=== PATIENT | female | born 1965 | race Caucasian/White ===

== ENCOUNTER 2021-09-16 09:44 | Emergency (ER) | payer BC, SELFPAY ==
[2021-09-16] VITALS (51 sets, daily range): BP systolic 130–162; BP diastolic 81–94; PULSE 93–128; RESP 11–29; TEMP 36.6; O2SAT 95–100
--- NOTE | ~2021-09-16 | CT_ITS ---
EXAMINATION: CTA chest PE protocol DATE: 09/16/2021 12:21 INDICATION: Cough. 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 TECHNIQUE: Computed tomography (CT) pulmonary angiogram of the chest was performed with 100 mL Omnipa que-350 intravenous contrast. Additional 3D reconstructions utilizing coronal maximum intensity proje ction (MIP) were performed. Automated exposure control and iterative reconstruction technique were em ployed. The dose-length product was 411.79 mGy-cm. COMPARISON: None FINDINGS: Good contrast opacification of the pulmonary arteries. There is mild streak artifact from dense contr ast in the superior vena cava and right atrium. Mild scattered respiratory motion artifact. Overall t his only mildly limits evaluation in the smaller more peripheral subsegmental pulmonary arteries. No pulmonary embolism. No pneumonia, pulmonary edema, pleural effusion or pneumothorax. Heart size is no rmal. Thoracic aorta is normal in caliber with no dissection. 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 No pathologically enlarged thoracic lymphadenopathy. Small sliding-type hia viktoria hernia. Visualized upper abdomen is unremarkable. Chronic anterior wedging with 20% anterior vert ebral body height loss at T11 and T12. Mild upper and moderate lower thoracic spondylosis. IMPRESSION: 1. No pulmonary embolism or other acute cardiopulmonary disease. 2. Small sliding-type hiatal hernia. Reviewed, dictated and finalized at location A. [employer] WORK[employer]
--- NOTE | ~2021-09-16 | US_ITS ---
EXAMINATION: US venous doppler LE RT DATE: 09/16/2021 11:10 INDICATION: Right lower limb pain TECHNIQUE: Grayscale ultrasound images without and with compression and Doppler ultrasound images of the right lower extremity veins were obtained. COMPARISON: None. FINDINGS: There is occlusive appearing noncompressible hypoechoic thrombus throughout the veins of the right lo wer limb including the visualized portions of right common femoral vein, profunda (deep) femoral vein , femoral vein, popliteal vein, peroneal trunk, posterior tibial veins, peroneal veins, gastrocnemius vein, soleus vein and greater saphenous vein outflow. The occlusive thrombus extends proximally into the visualized portion of the right external iliac vein. The contralateral left common femoral vein and greater saphenous vein are patent and compressible. IMPRESSION: 1. Extensive deep venous thrombosis throughout all of the visualized vessels in the right lower limb beginning distally in the calf and extending proximally into the left external iliac vein in the pel vis. Dr. Baker discussed these findings with Dr. Falk at 11:17 AM. Reviewed, dictated and finalized at location A. FLOOR ATTENDANT IMPRESSION: 1. Extensive deep venous thrombosis throughout all of the visualized vessels i n the right lower limb beginning distally in the calf and extending proximally into the left external iliac vein in the pelvis. Dr. Baker discussed these f indings with Dr. Falk at 11:17 AM.
--- NOTE | 2021-09-16 10:19 | ED.GENADULT ---
HPI - General Adult General Chief complaint: Extremity Problem,Nontraumatic <Marvin Valera ABDULLAHI CONKLIN - Last Filed: 09/16/21 19:06> Stated complaint: hip and leg pain <Marvin ValeraKATERIN BC - Last Filed: 09/16/21 19:06> Time Seen by Provider: 09/16/21 10:05 <Marvin Love KATERIN Valera BC - Last Filed: 09/16/21 19:06> Source: patient <HIRA NogueiraABDULLAHI Hemphill - Last Filed: 09/16/21 19:06> Mode of arrival: ambulatory <Marvin Love Moraima ABDULLAHI CONKLIN - Last Filed: 09/16/21 19:06> Limitations: no limitations <Marvin Valera ABDULLAHI CONKLIN - Last Filed: 09/16/21 19:06> History of Present Illness HPI narrative: Patient presents for evaluation of right lower quadrant pain with radiation into the right lower extremity. Symptom onset yesterday morning upon waking from sleep. She cannot identify any precipitating cause or injury. No history of similar symptoms. Pain is constant, throbbing, worse with movement. She has experienced nausea, an episode of vomiting, and constipation. She also has some decreased urinary output without other urinary symptoms. Denies vaginal bleeding and discharge. No recent surgeries. No personal history of VTE. Twin sister does have a history of VTE. Pt is on oral estrogen based contraceptive. <Marvin Love KATERIN Valera BC - Last Filed: 09/16/21 19:06> Related Data Home medications: Home Medications Medication Instructions Recorded Confirmed diphenhydramine HCl [Benadryl 25 mg PO DAILY 09/16/21 Allergy] <Marvin BarryKATERIN Vallejo BC - Last Filed: 09/16/21 19:06> Allergies/adverse reactions: Allergies Allergy/AdvReac Type Severity Reaction Status Date / Time poison mazin extract Allergy Intermediate Rash Verified 03/07/19 09:10 Penicillins Allergy Rash Verified 09/16/21 15:29 <Marvin LKATERIN Lee BC - Last Filed: 09/16/21 19:06> Review of Systems Review of Systems: CONSTITUTIONAL: Denies fever, chills, or sweats. EYES: Denies visual changes, redness, or discharge. ENT: Denies rhinorrhea, congestion, sore throat, or otalgia. CARDIOVASCULAR: Denies chest pain, palpitations. RESPIRATORY: Denies cough or dyspnea. GASTROINTESTINAL: Reports right lower pelvic pain. Denies nausea, vomiting, or diarrhea. GENITOURINARY: Reports decreased urinary output. Denies dysuria or hematuria. SKIN: Denies rash or itching. MUSCULOSKELETAL: Reports pain and swelling in RLE. Denies back pain and joint pain NEUROLOGIC: Denies headache, numbness, dizziness, or weakness. PSYCHIATRIC: Denies anxiety or depression. <KATERIN Nogueira BC - Last Filed: 09/16/21 19:06> PMFSH Past Medical History Medical History: Medical History (Updated 09/16/21 @ 12:01 by KATERIN Nogueira BC) Hypertension <KATERIN Nogueira BC - Last Filed: 09/16/21 19:06> Surgical History Surgical History: Surgical History History of section <KATERIN Nogueira BC - Last Filed: 09/16/21 19:06> Family History Family History: Family History Father Heart disease <KATERIN Nogueira BC - Last Filed: 09/16/21 19:06> Social History Social History: Social History Substance use: never Living arrangements: with family Gender identity (if verbalized by the patient): Female Sexual Orientation (if Verbalized by the Patient): Straight or Heterosexual Spiritual care concerns: No <KATERIN Nogueira BC - Last Filed: 09/16/21 19:06> Exam Narrative: GENERAL: Well-appearing, well-nourished, and in no acute distress. HEAD: Normocephalic, atraumatic. EYES: PERRLA and EOMI. ENT: Nares clear, no rhinorrhea or epistaxis. Mucous membranes moist. Oropharynx without tonsillar hypertrophy exudate or other lesions. Bilateral TMs pearly leon nonbulgin
--- NOTE | 2021-09-16 10:39 | PC.NURSE ---
Patient aware of the need to provide urine specimen, states she cannot at this time.
[2021-09-16 10:43] LABS: Basophils Percent Auto 0.1 % (0.2-1.2); Eosinophils Percent Auto 0.1 % (0-4.4); Hematocrit 36.5 % (37.0-47.0); Hemoglobin 12.3 g/dL (12.0-15.0); Immature Granulocyte Absolute 0.12 K/mm3 (0.00-0.031); Immature Granulocyte Percent A 0.7 % (0-0.5); Lymphocytes Absolute Auto 1.04 K/mm3 (0.9-3.2); Mean Corpuscular HGB Conc 33.7 g/dl (32-36); Mean Corpuscular Hemoglobin 30.7 pg (26-34); Mean Platelet Volume 9.3 fl (7.4-10.4); Monocytes Absolute Auto 1.1 K/mm3 (0.1-0.6); Monocytes Percent Auto 6.3 % (2.6-8.5); Neutrophils Percent Auto 86.8 % (45.5-73.1); Platelet Count Result 397 k/mm3 (150-375); Red Blood Count 4.01 M/mm3 (4.2-5.4); Red Cell Distribution Width 13.3 % (11.5-14.5); White Blood Count 17.3 K/mm3 (4.5-10.0)
[2021-09-16] MEDS: MORPHINE SULFATE (*CRX) 2 MG/ML INJ IV PUSH (10:43)
[2021-09-16 10:59] LABS: INR 1.1; Prothrombin Time 13.7 Seconds (11.1-14.7)
[2021-09-16 11:00] LABS: Partial Thromboplastin Time 35.1 SECONDS (22.3-36.8)
[2021-09-16 11:01] LABS: Alanine Aminotransferase 30 U/L (4-35); Albumin Level 4.1 g/dL (3.5-5.1); Alkaline Phosphatase 138 U/L (38-126); Anion Gap 14 mmol/L (8-16); Aspartate Amino Transferase 30 U/L (14-36); Bilirubin,Total 0.7 mg/dL (0.2-1.3); Blood Urea Nitrogen 25 mg/dL (7-17); Calcium 9.8 mg/dL (8.4-10.2); Carbon Dioxide 20 mmol/L (22-30); Chloride 103 mmol/L (98-107); Estimated CRCL calculation 69 ml/min; Estimated Glomerular Filt Rate > 60; Glucose 165 mg/dL (65-110); Lipase 18 U/L (23-300); Potassium 4.1 mmol/L (3.4-5.0); Sodium 137 mmol/L (137-145)
--- NOTE | 2021-09-16 12:18 | PC.NURSE ---
Patient in radiology.
[2021-09-16] MEDS: oxyCODONE/ACETAMINOPHEN (*CRX) 5-325 MG TABLET 2 TABLET PO ×2 (12:21→18:22)
[2021-09-16 12:30] LABS: Add Urine Microscopic? YES; Appearance Urine Cloudy (Clear); Bilirubin Urine Negative (Negative); Blood Urine Negative (Negative); Color Urine Amber (Yellow); Glucose Urine UA Negative (Negative); Ketones Urine Trace mg/dL (Negative); Leukocyte Esterase Ur Negative LEU/UL (Negative); Mucus Urine Few /lpf; Nitrate Urine Negative (Negative); Protein Urine 3+ mg/dL (Negative); Squamous Epithelial Cell Urine Occasional /hpf (Few)
[2021-09-16] MEDS: HEPARIN SODIUM 5,000 UNITS/ML VIAL 4000 UNITS IV PUSH ×2 (12:33→18:22)
[2021-09-16] MEDS: HEPARIN SOD/D5W 100 UNITS/ML 25,000 UNITS/250 ML BAG 8 UNITS IV CONT (12:34)
[2021-09-16 12:37] LABS: Specific Grav Ur 1.042 (1.001-1.035)
[2021-09-16 12:49] LABS: EDCOVIDSCREEN Negative (Negative)
--- NOTE | 2021-09-16 13:01 | PC.NURSE ---
Updated [facility] transfer line on COVID result. Awaiting bed placement at this time.
--- NOTE | 2021-09-16 13:17 | PC.NURSE ---
Called [facility] Transfer Line and spoke with Adam...informed her that patient's Covid test is NEGATIVE. She said they will call back with bed assignment when one becomes available.
--- NOTE | 2021-09-16 15:09 | PC.NURSE ---
assuming care from marcy smith
[2021-09-16] MEDS: MORPHINE SULFATE (*CRX) 4 MG/ML INJ IV PUSH (15:24)
--- NOTE | 2021-09-16 15:39 | PC.NURSE ---
CALLED [facility]. PATIENT STILL ON WAITLIST. BEDS NORMALLY OPEN UP BETWEEN 4 AND 6 PM. WILL CALL WHEN/IF ONE BECOMES AVAILABLE.
[2021-09-16 18:09] LABS: INR 1.1; Prothrombin Time 13.6 Seconds (11.1-14.7)
[2021-09-16 18:10] LABS: Partial Thromboplastin Time 46.4 SECONDS (22.3-36.8)
--- NOTE | 2021-09-16 18:45 | PC.NURSE ---
pt dropped one of original percocet on floor. med found and wasted with another rn. another med pulled from pyxis and given to pt to equal ordered dose. accidental dose of oxy 5 mg pulled and then returned to pyxis. return witnessed by another rn
--- NOTE | 2021-09-16 19:52 | PC.NURSE ---
[facility] here.
--- NOTE | 2021-09-17 08:01 | PC.NURSE ---
Annabella made contact with [facility]. facility asked for covid report to be faxed to their extention so they do not have to re-swab. report has been sent @ [phone]
== END 2021-09-16 20:05 | disposition short-term general hospital (02) ==
PROVIDERS: Emergency Provider Nurse Practitioner
DX: I82.411 Acute embolism and thrombosis of right femoral vein (principal); I82.451 Acute embolism and thrombosis of right peroneal vein; I82.441 Acute embolism and thrombosis of right tibial vein; I82.461 Acute embolism and thrombosis of right calf muscular vein; I82.421 Acute embolism and thrombosis of right iliac vein; I10 Essential (primary) hypertension; Z20.822 Contact with and (suspected) exposure to COVID-19
CPT/HCPCS: 36415; 51701; 71275; 80053; 81001; 83605; 83690; 85025; 85610; 85730; 87426; 93971; 96365; 96366; 96375; 96376; 99285; A9270; C9803; J1644; J2270; Q9967